=== PATIENT | male | born 1955 | race Caucasian/White ===

== ENCOUNTER 2022-04-05 04:27 | Inpatient (IN) | payer SELFPAY ==
[2022-04-05] VITALS (10 sets, daily range): BP systolic 84–139; BP diastolic 41–73; PULSE 72–90; RESP 15–20; TEMP 36.3–36.6; O2SAT 87–100; BMI 38.9
--- NOTE | 2022-04-05 04:31 | HP.PCM.HOS_ITS ---
HPI - General General Date of Admission: 04/05/22 Date of Service: 04/05/22 Chief Complaint: Abnormal blood work HPI Narrative PETR ESTRELLA, is a 66 M who presents as a direct admit from [facility]. Patient has past medical history of hypertension, hyperlipidemia, type II DM on metformin, who lives in [place] and is here visiting his family. Patient stated that a day prior to admission, he ate a [employer] and started having nausea and vomiting. He has several episodes of diarrhea as well as vomiting. It is associated with crampy abdominal pain. He presented to the emergency room because he felt very dehydrated and unable to keep any fluids down. His blood work in [facility] showed T count of 20.0, hemoglobin 17, platelet count 250, BUN 44, creatinine 4.2, glucose 298. His previous creatinine from [facility] review was 0.6. Patient stated that he has not had any diarrhea since on the day of admission. His nausea is improved. Still has abdominal discomfort. Denies any fever or chills PFSH Medical History COPD (chronic obstructive pulmonary disease) CPAP (continuous positive airway pressure) dependence Diabetes Hepatitis Hypertension Sleep apnea Smoker Home Medications Flovent HFA 1 puff OTHER BID Check with primary doctor 04/05/22 [History Last Taken Unknown] albuterol sulfate 90 mcg/actuation aerosol inhaler (ProAir HFA) 2 inh inhalation Q4H PRN Shortness Of Breath Or Wheezing 04/05/22 [History Last Taken Unknown] atorvastatin 40 mg tablet 40 mg PO QHS 04/05/22 [History Last Taken Unknown] lisinopril 20 mg tablet 1 tab PO DAILY hypertension 04/05/22 [History Last Taken Unknown] metformin 1,000 mg tablet 1 tab PO BID diabetes 04/05/22 [History Last Taken Unknown] Allergy/AdvReac Type Severity Reaction Status Date / Time No Known Allergies Allergy Verified 04/05/22 04:12 Family History (Updated 04/05/22 @ 05:[address] Rosibel Goldsmith MD) Mother Breast cancer Father Asbestosis Surgical History no surgical history no surgical history Social History Smoking Status: Current every day smoker tobacco type: cigarettes ROS ROS Narrative Constitutional: Reports: Malaise, Weakness, Fatigue. Denies: Anorexia, Chills, Fever, Night Sweats, Weight Change Eyes: Denies: Blurred vision, Cataracts, Conjunctivae Inflammation, Pain, Re dness, Vision Change HEENT: Denies: Difficulty Hearing, Difficulty Swallowing, Head Aches, Hearing C hanges, Sinus Congestion, Sinus Drainage Cardiovascular: Denies: Chest Pain, Orthopnea, Palpitations Respiratory: Denies: Cough, Shortness of breath at rest, Sputum production Gastrointestinal: See HPI Genitourinary: Denies: Dysuria Musculoskeletal: Denies: Joint Pain, Joint stiffness, Joint swelling, Joint Tenderness Skin: Denies: Rash, Wounds Neurological: Denies: Numbness, Tingling, Focal weakness Vital Signs Vital Signs Vital Signs: 04/05/22 04:11 Temperature 97.9 F Temperature Source Temporal Pulse Rate 81 Respiratory Rate 16 Blood Pressure 139/72 H Blood Pressure Mean 94 Blood Pressure Source Monitor Blood Pressure Position Semi-Fowlers Blood Pressure Location Left Arm Pulse Ox 94 Oxygen Delivery Method Nasal Cannula Oxygen Flow Rate (L/min) 4 Weight Weight: 119.7 kg Body Mass Index (BMI) 38.9 Physical Exam Narrative Physical exam: General: Alert, Oriented x3, Cooperative, No apparent distress, obese HEENT: Atraumatic Oral: Moist Mucosa Neck: Supple Lungs: Diminished to auscultation Cardiovascular: HS I+II, regular, no murmurs Abdomen: Bowel Sounds Present, Soft, Non Tender Extremities: No edema Skin: No rashes, No breakdown Neurological: Grossly intact Psych/Mental Status: Appropriate Results Lab / Micro Data Result Diagrams: 04/05/22 04:54 04/05/22 04:54 Assessment & Plan Assessment/Plan (1) TREVA (acute kidney injury): (2) Acute gastroenteritis: PLAN: Plan 1. TREVA, prerenal, secondary to dehydration/acute gastroenteritis Patient with baseline creatinine of 0.8, Continue IV fluids, repeat BMP in a.m. Hold metformin and lisinopril 2. Acute gastroenteritis, likely viral Rapid COVID-19 test is negative Will check stool for C. difficile/enteric panel if diarrhea persists Continue with IV fluids, antiemetics as needed 3. Hypertension, controlled Hold lisinopril on account of acute kidney injury Continue with hydralazine as needed 4. Type II DM, would hold metformin Continue blood glucose checks with insulin sliding scale 5. Nicotine dependence, advised to quit, continue replacement 6. MULUGETA, used to be on CPAP, patient stated that his CPAP machine has been taken away from him We will keep on nocturnal oxygen 7. COPD, not in acute exacerbation, will continue with prn breathing treatments 8. DVT prophylaxis?heparin subcu Charges/Coding Visit Charges Inpatient E&M: 54686 Init Hosp L3
--- NOTE | 2022-04-05 04:32 | US_ITS ---
STUDY: RENAL ULTRASOUND - COMPLETE REASON FOR EXAM: Male, 66 years old. TREVA TECHNIQUE: Ultrasound evaluation of the kidneys was performed with real-time and static solomon-scale imaging. COMPARISON: None. FINDINGS: RIGHT KIDNEY: Normal location of the right kidney, which is normal in size. The right kidney measures 12.8 x 5.5 cm. There is a normal cortex of the right kidney. The renal cortex measures 1.1 cm. There is a renal cyst. This measures 48 x 43 mm and 27 x 21 mm. No follow-up required. There are no right renal calculi. There is no right hydronephrosis. DISTAL RIGHT URETER: There is non-visualization of the distal right ureter. There is no demonstrated right ureterovesical junction calculus. There is no demonstrated right ureteral jet. LEFT KIDNEY: Normal location of the left kidney, which is normal in size. The left kidney measures 13.5, 5.1 cm. There is a normal cortex of the left kidney. The renal cortex measures 1.9 cm. There is no left renal mass or cyst. There are no left renal calculi. There is no left hydronephrosis. DISTAL LEFT URETER: There is non-visualization of the distal left ureter. There is no demonstrated left ureterovesical junction calculus. There is a visualized left ureteral jet. AORTA: There is obscuration of the abdominal aorta by overlying bowel gas I.V.C.: The IVC is obscured. BLADDER: The distended urinary bladder has a volume of 130 ml. There is a normal wall thickness of the distended urinary bladder. There is no demonstrated mass within the urinary bladder. There are no demonstrated bladder calculi. US/Kidney and Bladder IMPRESSION: No acute findings. Electronically Signed: Kota Foster MD at 15:40 EDT ,
[2022-04-05 05:07] LABS: Absolute Lymphocyte Count 1.72 X10^3/uL (0.83-4.51); Absolute Neutrophil Count 13.3 X10^3/uL (2.0-7.7); Basophil# 0.06 X10^3/uL; Basophil% 0.4 % (0-1); Eosinophil# 0.01 X10^3/uL; Eosinophils% 0.1 % (0-5); Hematocrit 51.7 % (40-54); Hemoglobin 16.3 g/dL (13.0-16.5); Lymphocyte # 1.72 X10^3/ul (0.83-4.51); Lymphocyte % 10.4 % (19-41); Mean Corp Hgb Conc 31.5 g/dL (32-36); Mean Corpuscular Hgb 27.1 pg (27.0-32.0); Mean Corpuscular Volume 85.9 fL (80-94); Monocyte# 1.33 X10^3/uL; NRBC Flagged by Analyzer 0 % (0-5); Platelet Count 209 K/mm3 (150-450); RBC Distribution Width CV 14.2 % (11.6-14.6); RBC Distribution Width SD 44.1 fl (35.1-43.9); Red Blood Count 6.02 M/mm3 (4.6-6.2); White Blood Count 16.6 K/mm3 (4.4-11.0)
[2022-04-05] MEDS: 0.9% Normal Saline 1,000 ML 150 ML IV ×2 (05:07→10:34)
[2022-04-05] MEDS: Heparin Injection (Vial) 5,000 UNIT/ML VIAL 5000 UNIT SC ×3 (05:10→21:46)
[2022-04-05 05:28] LABS: ALB/GLOB Ratio 0.7 RATIO (0.9-2.4); AST(SGOT) 18 U/L (15-37); Alanine Aminotransfer ALT/SGPT 17 U/L (16-61); Albumin, Serum 2.4 g/dL (3.2-5.0); Alkaline Phosphatase 75 U/L (45-117); Anion Gap 10 (5-15); BUN 49 mg/dL (7-18); BUN/Creat Ratio 10.5 RATIO (10-20); Calcium,Total 8.1 mg/dL (8.5-10.1); Chloride 90 mmol/L (98-107); Creatinine, Serum 4.68 mg/dL (0.70-1.30); EST Glomerular Filtration Rate 13 mL/min (>60); Est Glom Filt Rate - Afr Amer 16 mL/min (>60); Estimated Creatinine Clearance 15.74 ml/min; Globulin 3.6 g/dL (2.2-4.2); Glucose 241 mg/dL (74-106); Potassium 3.8 mmol/L (3.5-5.1); Sodium Level 134 mmol/L (136-145)
[2022-04-05 05:33] LABS: Lactic Acid 3.6 mmol/L (0.4-1.9)
[2022-04-05] MEDS: Insulin Lispro 100 UNIT/ML INSULN.PEN SC ×2 (06:28→12:13)
[2022-04-05 07:01] LABS: Bedside Glucose 220 mg/dL (74-106)
[2022-04-05] MEDS: Budesonide Respules 0.5 MG/2 ML AMPUL.NEB. INHALATION ×2 (07:05→21:58)
--- NOTE | 2022-04-05 07:58 | NURSING ---
call placed to [facility], requested cxr results be faxed over as requested by Dr Dutton
[2022-04-05 08:29] LABS: Hemoglobin A1c 6.2 % (3.8-5.6)
[2022-04-05 09:03] LABS: Reflex Lactate? Y
--- NOTE | 2022-04-05 09:29 | PN.HOSP_ITS ---
Hospitalist Note Patient was seen and examined today, it appears that he is in renal failure due to prerenal reasons, I talked briefly with nephrology on the phone, I do not think it is necessary for nephrology to see the patient at this time, I have elected to give the patient more fluid at this time and encourage oral fluid intake. Labs will be monitored. I am attempting to obtain his chest x-ray report from [facility], patient is currently on low-flow nasal cannula oxygen, it appears he has a history of COPD.
[2022-04-05 10:15] LABS: Lactic Acid 2.9 mmol/L (0.4-1.9)
[2022-04-05] MEDS: 0.9% Normal Saline 1,000 ML 999 ML IV ×4 (10:34→18:39)
[2022-04-05 12:50] LABS: Bedside Glucose 153 mg/dL (74-106)
--- NOTE | 2022-04-05 13:30 | CASEMGMT ---
RN CM Face to Face with patient for initial transition planning/care coordination assessment. RN CM introduced self and role at [facility]. Patient lying in bed, alert and oriented. Patient willing to participate in assessment and is able to answer all questions appropriately. Care providers, pharmacy, and demographics verified. Patient wishes to discharge home, denies need for home health at this time. Patient states he has no further needs or concerns at this time. CM to follow for discharge planning needs that may arise. PCP: None, PCP list provide in [place] area as patient states he is moving back to area Specialists: none Preferred Pharmacy: none Insurance: none Prescription Benefit: none Living Will/HPOA: none LNOK: daughter Living Arrangements: Patient lives in [place]. Patient currently staying with daughter in 2 story home. Patient states he is independent and able to ambulate stairs. Transportation: self, daughter DME/HHC: Patient states he has glucometer and testing supplies at [facility]. Disposition Plan: Patient to discharge to [facility] with family support and follow-up plans in place. Venus CRENSHAW, RN, CM
[2022-04-05 18:16] LABS: Anion Gap 7 (5-15); BUN 58 mg/dL (7-18); BUN/Creat Ratio 13.2 RATIO (10-20); Calcium,Total 7.3 mg/dL (8.5-10.1); Chloride 96 mmol/L (98-107); Creatinine, Serum 4.39 mg/dL (0.70-1.30); EST Glomerular Filtration Rate 14 mL/min (>60); Est Glom Filt Rate - Afr Amer 17 mL/min (>60); Estimated Creatinine Clearance 16.78 ml/min; Glucose 115 mg/dL (74-106); Sodium Level 138 mmol/L (136-145)
[2022-04-05 20:35] LABS: Urine Sodium 25 mmol/L (Not Establ.)
[2022-04-05] MEDS: 0.9% Normal Saline 1,000 ML 175 ML IV (21:11)
[2022-04-05] MEDS: Atorvastatin Calcium 40 MG Tablet PO (21:46)
[2022-04-06] VITALS (8 sets, daily range): BP systolic 98–121; BP diastolic 46–87; PULSE 68–75; RESP 16–20; TEMP 36.4–36.9; O2SAT 93–100
[2022-04-06] MEDS: 0.9% Normal Saline 1,000 ML 175 ML IV ×3 (04:31→16:04)
[2022-04-06 06:24] LABS: Absolute Lymphocyte Count 1.61 X10^3/uL (0.83-4.51); Absolute Neutrophil Count 5.5 X10^3/uL (2.0-7.7); Basophil# 0.01 X10^3/uL; Basophil% 0.1 % (0-1); Eosinophil# 0.07 X10^3/uL; Eosinophils% 0.9 % (0-5); Hematocrit 41.7 % (40-54); Hemoglobin 12.8 g/dL (13.0-16.5); Lymphocyte # 1.61 X10^3/ul (0.83-4.51); Lymphocyte % 20.9 % (19-41); Mean Corp Hgb Conc 30.7 g/dL (32-36); Mean Corpuscular Hgb 27.2 pg (27.0-32.0); Mean Corpuscular Volume 88.7 fL (80-94); Mean Platelet Vol. 9.8 fl (6.2-12.0); Monocyte# 0.43 X10^3/uL; Monocyte% 5.6 % (0-10); NRBC Flagged by Analyzer 0 % (0-5); Neutrophil # 5.53 X10^3/uL (2.7-7.7); Neutrophil % 71.9 % (47-70); Platelet Count 152 K/mm3 (150-450); RBC Distribution Width CV 13.8 % (11.6-14.6); RBC Distribution Width SD 45.1 fl (35.1-43.9); White Blood Count 7.7 K/mm3 (4.4-11.0)
[2022-04-06] MEDS: Heparin Injection (Vial) 5,000 UNIT/ML VIAL 5000 UNIT SC ×3 (06:30→21:42)
[2022-04-06] MEDS: Budesonide Respules 0.5 MG/2 ML AMPUL.NEB. INHALATION ×2 (06:50→19:37)
[2022-04-06 07:00] LABS: Anion Gap 6 (5-15); BUN 49 mg/dL (7-18); Calcium,Total 6.9 mg/dL (8.5-10.1); Chloride 100 mmol/L (98-107); Creatinine, Serum 2.89 mg/dL (0.70-1.30); EST Glomerular Filtration Rate 23 mL/min (>60); Est Glom Filt Rate - Afr Amer 28 mL/min (>60); Estimated Creatinine Clearance 25.48 ml/min; Glucose 102 mg/dL (74-106); Potassium 3.5 mmol/L (3.5-5.1); Sodium Level 137 mmol/L (136-145)
--- NOTE | 2022-04-06 08:46 | PN.HOSP_ITS ---
Subjective Subjective Patient was seen and examined today, his creatinine has improved today-it is 2.89. Patient inquired about the possibility of going home, I told him that more than likely this will happen tomorrow because we will need to keep administering fluids and recheck his labs which will be done in the morning. Objective Data Objective Data Vital Signs: Vital Signs Temp Pulse Resp BP Pulse Ox O2 Del Method O2 Flow Rate 97.5 F L 68 20 H 112/60 100 Nasal Cannula 3 04/06/22 08:14 04/06/22 08:14 04/06/22 08:14 04/06/22 08:14 04/06/22 08:25 04/06/22 08:25 04/06/22 06:51 Oxygen Flow Rate (L/min) [At 2 REST with Oxygen] Oxygen Flow Rate (L/min) 3 Oxygen Delivery Method Nasal Cannula Weight: 107.5 kg Body Mass Index (BMI) 38.9 Intake & Output: Intake and Output for Last 24 Hours 04/04/22 04/05/22 04/06/22 23:59 23:59 23:59 Intake Total 6441.25 / 6441.25 1500.00 / 1500.00 Output Total 1200 / 1200 700 / 700 Balance 5241.25 / 5241.25 800.00 / 800.00 Lab / Micro Data Result Diagrams: 04/06/22 05:54 04/06/22 05:54 Labs: Laboratory Results - last 24 hr 04/05/22 08:40: COVID-19 (QUE) Not Detected 04/05/22 09:21: Lactic Acid 2.9 H* 04/05/22 12:05: POC Glucose 153 H 04/05/22 17:40: Sodium 138, Potassium 4.0, Chloride 96 L, Carbon Dioxide 35.0 H, Anion Gap 7, BUN 58 H, Creatinine 4.39 H, Estim Creat Clear Calc 16.78, Est GFR (MDRD) Af Amer 17 L, Est GFR (MDRD) Non-Af 14 L, BUN/Creatinine Ratio 13.2, Glucose 115 H, Calcium 7.3 L 04/05/22 20:15: Ur Random Sodium 25 04/05/22 20:15: Urine Creatinine 168.00 04/06/22 05:54: WBC 7.7, RBC 4.70, Hgb 12.8 L, Hct 41.7, MCV 88.7, MCH 27.2, MCHC 30.7 L, RDW Std Deviation 45.1 H, RDW Coeff of Dennys 13.8, Plt Count 152, MPV 9.8, Immature Gran % (Auto) 0.600, Neut % (Auto) 71.9 H, Lymph % (Auto) 20.9, [place] % (Auto) 5.6, Eos % (Auto) 0.9, Baso % (Auto) 0.1, Absolute Neuts (auto) 5.5, Absolute Lymphs (auto) 1.61, Nucleated RBC % 0 04/06/22 05:54: Sodium 137, Potassium 3.5, Chloride 100, Carbon Dioxide 31.0, Anion Gap 6, BUN 49 H, Creatinine 2.89 H, Estim Creat Clear Calc 25.48, Est GFR (MDRD) Af Amer 28 L, Est GFR (MDRD) Non-Af 23 L, BUN/Creatinine Ratio 17.0, Glucose 102, Calcium 6.9 L Radiography Diagnostic Testing: Radiology Impression Renal Ultrasound 04/05/22 04:32 IMPRESSION: No acute findings. Electronically Signed: Kota Foster MD at 15:40 EDT , Physical Exam Const alert, oriented x3, no apparent distress and healthy appearing General Appearance: cooperative, well kempt and well developed Orientation / Consciousness: awake, oriented to person, oriented to place and oriented to time HEENT normocephalic and moist oral mucous membranes Eyes PERRL, EOMs intact bilaterally and conjunctivae normal Neck supple, no JVD and thyroid normal General: trachea midline Resp normal respiratory effort, no retractions, no use of accessory muscles and clear to auscultation bilaterally Auscultation: Negative for rales, rhonchi or wheezes Cardio regular rate, regular rhythm, S1 normal heart sound, S2 normal heart sound, no murmurs, no rub and no gallops GI normal to inspection, nondistended, normoactive bowel sounds, soft to palpation, non-tender and non-distended Extremity no clubbing, cyanosis or edema Skin no rashes or lesions noted General Skin Exam: no breakdown Neuro oriented x3, CN's II-XII intact bilaterally, moves all extremities, no focal motor deficits and no sensory deficits noted Sensorium / Orientation: awake and alert Speech: speech normal Psych affect normal Assessment & Plan Assessment/Plan (1) TREVA (acute kidney injury): PLAN: Plan 1. Acute kidney injury secondary to dehydration-continue to administer fluids, recheck labs tomorrow #2 gastroenteritis-resolved at this time #3 chronic obstructive pulmonary disease-patient is on aerosol treatments #4 type 2 diabetes-patient was on metformin as an outpatient but due to his kidney impairment, he will not be taking it presently. Patient will have fingerstick blood sugars and insulin will be administered as needed. #5 hypoxia-patient is currently on 3 L, we will attempt to wean oxygen. Patient's chest x-ray that was performed at [facility] was negative for infiltrates or abnormality. #6 essential hypertension-patient's blood pressure is under control without any medications at this time, blood pressure will be monitored Charges/Coding Visit Charges Inpatient E&M: 65736 Subs Hosp L2
[2022-04-06 12:25] LABS: Bedside Glucose 145 mg/dL (74-106)
[2022-04-06 16:50] LABS: Bedside Glucose 119 mg/dL (74-106)
[2022-04-06] MEDS: Atorvastatin Calcium 40 MG Tablet PO (21:42)
[2022-04-06 22:05] LABS: Bedside Glucose 120 mg/dL (74-106)
--- NOTE | 2022-04-06 22:34 | NURSING ---
Patient's grandson, Fili Siegel [phone], would like to be notified when patient is discharged. Fili will be providing transportation.
[2022-04-07] MEDS: 0.9% Normal Saline 1,000 ML 100 ML IV (01:43)
[2022-04-07 02:23] VITALS: BP 133/64; PULSE 65; RESP 18; TEMP 36.8; O2SAT 95
[2022-04-07] MEDS: Heparin Injection (Vial) 5,000 UNIT/ML VIAL 5000 UNIT SC (06:32)
[2022-04-07] MEDS: 0.9% Saline Lock 10 ML Syringe IV (06:32)
[2022-04-07 06:55] LABS: Bedside Glucose 106 mg/dL (74-106)
[2022-04-07 07:09] VITALS: PULSE 75; RESP 20; O2SAT 91
[2022-04-07] MEDS: Budesonide Respules 0.5 MG/2 ML AMPUL.NEB. INHALATION (07:09)
[2022-04-07 07:17] LABS: Anion Gap 6 (5-15); BUN 32 mg/dL (7-18); BUN/Creat Ratio 18.8 RATIO (10-20); Calcium,Total 7.8 mg/dL (8.5-10.1); Chloride 103 mmol/L (98-107); EST Glomerular Filtration Rate 43 mL/min (>60); Est Glom Filt Rate - Afr Amer 52 mL/min (>60); Estimated Creatinine Clearance 43.32 ml/min; Glucose 94 mg/dL (74-106); Potassium 3.8 mmol/L (3.5-5.1); Sodium Level 139 mmol/L (136-145)
[2022-04-07 09:27] VITALS: BP 118/69; PULSE 72; RESP 18; TEMP 36.6; O2SAT 96
--- NOTE | 2022-04-07 11:40 | PCM.DC.SUM ---
Providers Date of Admission: 04/05/22 Date of Discharge: 04/07/22 Primary Care Physician: No Primary Care Phys Reason For Visit: TREVA Diagnosis Discharge Diagnosis (1) TREVA (acute kidney injury): Status: Acute Code(s): N17.9 - Acute kidney failure, unspecified Medications at Discharge Home Medications Flovent HFA 1 puff OTHER BID Check with primary doctor 04/05/22 albuterol sulfate 90 mcg/actuation aerosol inhaler (ProAir HFA) 2 inh inhalation Q4H PRN Shortness Of Breath Or Wheezing 04/05/22 atorvastatin 40 mg tablet 40 mg PO QHS 04/05/22 lisinopril 20 mg tablet 1 tab PO DAILY hypertension 04/05/22 metformin 1,000 mg tablet 1 tab PO BID diabetes 04/05/22 Hospital Course Operations None Procedures EKG and - (Renal ultrasound) Summary of Care Provided Minutes Spent on Discharge: 36 Hospital Course: Mr. Trejo is a 66-year-old white male who was admitted to [facility] on 04/05/2022 as a transfer from [place] emergency department after being found to have abnormal blood work upon presentation. Evidently presented to [place] ED secondary to nausea, vomiting, and diarrhea and the feeling that he was dehydrated. He was unable to keep any fluids down per report. Lab work at emergency department in [place] showed a white count of 20,000, hemoglobin of 17, platelet count of 250,000. His BUN was elevated at 44 and his serum creatinine was 4.2 with a glucose of 289. Previous creatinine was able to be found although dates are unknown and it was 0.6 at that time. He recently moved to [place] from [place] and was here visiting family. He has not established with a new primary care physician as of yet but plans to soon. Evidently, on the day of admission his diarrhea had ceased and his nausea improved however he still complained of some abdominal pain and crampiness. Vital signs on presentation were unremarkable other than him requiring oxygen at 4 L for an oxygen saturation less than 88%. On 4 L he was 94%. His home metformin and lisinopril were held given his acute kidney injury and he was treated aggressively with hydration. Retroperitoneal ultrasound was performed and showed no acute findings. His serum creatinine improved from 4.68 on the day of admission to 1.07 on the day of discharge. His nausea and vomiting and diarrhea had all completely resolved and he was tolerating a p.o. diet with p.o. hydration without difficulty. Given that his serum creatinine was still above his baseline we did hold his metformin for another 48 hours but restarted his lisinopril upon discharge. Anticipate he should continue to improve with regards to his serum creatinine as his oral intake has improved dramatically since presentation. I strongly encouraged him to follow-up with a primary care physician within the next 2 weeks and have repeat BMP done at that time. Unfortunately, he is not currently established with a primary care physician due to a recent move. He was discharged home in stable condition on 04/07/2022. Discharge diagnoses: Acute kidney injury-resolving Dehydration Acute gastroenteritis-resolved COPD DM-2 Hypoxia-resolved Hypertension Hyperlipidemia Ongoing tobacco abuse Weight / BMI Weight Weight: 107.4 kg Body Mass Index (BMI) 38.9 ABG / Lab / Microbiology Data Result Diagrams: 04/06/22 05:54 04/07/22 06:10 Laboratory: Laboratory Results - last 24 hr 04/06/22 12:03: POC Glucose 145 H 04/06/22 16:13: POC Glucose 119 H 04/06/22 21:41: POC Glucose 120 H 04/07/22 06:10: Sodium 139, Potassium 3.8, Chloride 103, Carbon Dioxide 30.0, Anion Gap 6, BUN 32 H, Creatinine 1.70 H, Estim Creat Clear Calc 43.32, Est GFR (MDRD) Af Amer 52 L, Est GFR (MDRD) Non-Af 43 L, BUN/Creatinine Ratio 18.8, Glucose 94, Calcium 7.8 L 04/07/22 06:32: POC Glucose 106 D/C Instructions Discharge Diet: Low fat / Low cholesterol and 1800 Calorie Control Diet Discharge Activity: Return to Normal Activity Return to work on: 04/08/22 Meaningful Use Info Meaningful Use Diagnoses (Choose all that apply): None applicable Discharge Plan Admission Admit Date/Time: 04/05/22 04:27 Primary Reason for Your Visit: Acute Kidney Injury and Dehydration Attending Provider: Anisa Davidson Primary Care Provider: Care Physician,No Primary Consulting Providers: Rosibel Goldsmith ; Kedar Dutton Instructions Additional Instructions / Restrictions: 1. Please find a new Primary Care Doctor and see within the next 2 weeks Discharge Orders/Prescriptions Prescriptions: Continued atorvastatin 40 mg Tablet 40 mg PO QHS lisinopril 20 mg tablet 1 tab PO DAILY Label Comments: TAKE 1 TABLET BY MOUTH ONCE DAILY albuterol sulfate [ProAir HFA] 90 mcg/actuation HFA aerosol inhaler 2 inh INHALATION Q4H PRN (Reason: Shortness Of Breath Or Wheezing) Label Comments: INHALE 2 PUFFS BY MOUTH 4 TIMES DAILY NEEDED FOR COUGH AND SHORTNESS OF BREATH FOR 90 DAYS Flovent HFA 1 puff OTHER BID Rx Instructions: inhalation. no strength listed Held metformin 1,000 mg tablet 1 tab PO BID Hold Instructions: Resume on 04/10/22. Label Comments: TAKE 1 TABLET BY MOUTH TWICE DAILY WITH A MEAL Referrals / Follow Up: Care Physician,No Primary [Primary Care Provider] - Disposition Disposition (needs filled in before D/C Order can be placed): Home, Self Care Charges/Coding Visit Charges Inpatient E&M: 57696 Subs Hosp L3
--- NOTE | 2022-04-27 23:20 | PCM.HOSP.N ---
Hospitalist Note Called per [facility] for potential transfer. Patient presenting to the outside [facility] ED with history of increased confusion, noted to forget to check his blood sugars with onset later in the day at approximately 1900 extremely notable slurred speech and increased confusion although this seemed to improve at least upon initial ED presentation with additional history of decreased oral intake as well as loose stools ongoing through the weeks with noted 2 episodes of diarrhea at outside facility ED. ED physician was concerned about confabulation and confusion. 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 Given these findings and concern for TIA discussed CTA findings with ED physician which had not been resulted prior to request for [facility] transfer and decision to transfer to higher level of care.
== END 2022-04-07 14:12 | disposition home or self-care (01) | DRG 684 ==
PROVIDERS: Internal Medicine; Admitting Provider Internal Medicine; Visit Provider Internal Medicine
DX: N17.9 Acute kidney failure, unspecified (principal); A08.4 Viral intestinal infection, unspecified; E11.9 Type 2 diabetes mellitus without complications; J44.9 Chronic obstructive pulmonary disease, unspecified; I10 Essential (primary) hypertension; G47.33 Obstructive sleep apnea (adult) (pediatric); F17.210 Nicotine dependence, cigarettes, uncomplicated; E86.0 Dehydration; E78.5 Hyperlipidemia, unspecified; R09.02 Hypoxemia
CPT/HCPCS: 36415; 76770; 80048; 80053; 82570; 82962; 83036; 83605; 84300; 85025; 87635; 94640; 99251; 99406; J7030; J7040; A4216; G0463; U0003; U0005